=== PATIENT | male | born 1980 | race African-American/Black ===

== ENCOUNTER 2017-02-26 13:44 | Emergency (ER) | payer OTHER ==
[~2017-02-26] VITALS: Ht 175.3 cm; Wt 91.5 kg
[2017-02-26 13:54] VITALS: Ht 175.3 cm; Wt 91.5 kg
[2017-02-26] MEDS ORDERED: AZIT250T94 PO (14:21)
[2017-02-26] MEDS ORDERED: IBUP-1542 PO (14:21)
[2017-02-26] MEDS ORDERED: D-ME473S18 PO (14:21)
--- NOTE | 2017-02-26 14:25 | ERD ---
ER Documentation Chief Complaint Date/Time DATE: 02/26/17 TIME: 14:23 Chief Complaint SORE THROAT/BODY ACHE X1WEEK HPI This 36-year-old male complains of productive cough and congestion for last week. May have had tactile fevers but no fever triage. There is no history of vomiting, abdominal pain, shortness breath, chest pain. ROS All systems reviewed and are negative except as per history of present illness. Medications Home Meds Active Scripts Dextromethorphan Hb-Promethazine Hcl (Promethazine DM Syrup) 473 Ml Syrup, 5 ML PO Q6H Y for COUGH, #4 OZ Prov:PAT WELCH MD 02/26/17 Ibuprofen* (Motrin*) 600 Mg Tab, 600 MG PO Q6, #15 TAB Prov:PAT WELCH MD 02/26/17 Azithromycin* (Zithromax*) 250 Mg Tablet, 250 MG PO .ZPACK DIRECTED, #6 TAB TAKE 500 MG (2 TABS) THE FIRST DAY THEN 250 MG (1 TAB) DAYS 2-5 Prov:PAT WELCH MD 02/26/17 Allergies Allergies: Coded Allergies: No Known Allergy (Unverified , 02/26/17) Physical Exam Vitals Vital Signs Date Time Temp Pulse Resp B/P Pulse Ox O2 Delivery O2 Flow Rate FiO2 02/26/17 13:54 98.4 79 20 131/79 98 Physical Exam Const: [] Mary, [id number] Head: Atraumatic Eyes: Normal Conjunctiva ENT: Normal External Ears, Nose and Mouth. TMs normal. There is some cobblestoning and postnasal drip. Tonsils normal. Pupils nasal congestion. Neck: Full range of motion..~ No meningismus. Resp: Clear to auscultation bilaterally. Slight rhonchi without rales, wheezing, retractions Cardio: Regular rate and rhythm, no murmurs Abd: Soft, non tender, non distended. Normal bowel sounds Skin: No petechiae or rashes Back: No midline or flank tenderness Ext: No cyanosis, or edema Neur: Awake and alert Psych: Normal Mood and Affect Procedures/MDM Patient presents with URI symptoms for the last week. Patient request induration patient will be treated with Zithromax, promethazine and ibuprofen. The patient was stable with no new complaints during the ER course. Clinically, there is no current evidence to suggest meningitis, sepsis, acute abdomen, pneumonia, acute coronary syndrome, pulmonary embolism, or any other emergent condition appearing to require further evaluation or hospitalization. The patient should certainly return for any new or worsening symptoms per the aftercare instructions. They should otherwise follow-up with her primary care doctor for reevaluation this week. Departure Diagnosis: Primary Impression: Upper respiratory infection URI type: unspecified URI Qualified Code: J06.9 - Upper respiratory tract infection, unspecified type Condition: Stable Patient Instructions: Acute Bronchitis Additional Instructions: Recheck for new or worsening symptoms or primary care doctor. PAT WELCH MD Feb 26, 2017 14:25
== END 2017-02-27 11:20 | disposition home or self-care (01) ==
LOC: FTE 13:44 → E/R 02-27 11:20
DX: J06.9 Acute upper respiratory infection, unspecified (principal)
CPT/HCPCS: 99284